=== PATIENT | male | born 2000 | race African-American/Black ===

== ENCOUNTER 2025-06-08 21:59 | Emergency (ER) | payer OTHER ==
[~2025-06-08] VITALS: Ht 185.4 cm; Wt 92.3 kg
[2025-06-08 22:41] LABS: BASO # 0.0 10^3/uL (0.0-0.2); BASO % 0.3 % (0.0-1.0); EOS # 0.2 10^3/uL (0.0-0.5); EOS % 1.7 % (0.0-3.0); LYMPH # 2.1 10^3/uL (1.5-5.0); LYMPH % 23.7 % (24.0-44.0); MONO # 0.8 10^3/uL (0.0-0.8); MONO % 8.5 % (2.0-8.0); NEUTROPHILS # 5.9 10^3/uL (1.5-8.5); NEUTROPHILS % 65.5 % (36.0-66.0); PLATELET COUNT, AUTOMATED 127 10^3/uL (150-450)
[2025-06-08 23:26] LABS: CALCIUM LEVEL 8.5 MG/DL (8.5-10.1); CARBON DIOXIDE LEVEL 28.0 MMOL/L (20-31); CHLORIDE LEVEL 103.0 MMOL/L (98-107); CREATININE FOR GFR 1.22 MG/DL (0.70-1.30); GLOMERULAR FILTRATION RATE 85.4 (>60); MAGNESIUM LEVEL 2.0 MG/DL (1.8-2.4); POTASSIUM SERUM 3.6 MMOL/L (3.5-5.1); SODIUM LEVEL 144.0 MMOL/L (136-145)
[2025-06-09] MEDS: NS (Normal Saline) 0.9% 1,000 ML IV ONE (00:45)
[2025-06-09] MEDS ORDERED: ISOVUE-370 76% 100 ML VIAL As Ordered ONE (01:10)
[2025-06-09] MEDS ORDERED: HEPARIN DRIP 25,000 UNITS in IV 1 EA IV SCH (03:20)
[2025-06-09] MEDS ORDERED: HEPARIN SOD 5000 UNITS/ML 1 ML VIAL/SYRINGE IV ONE (03:20)
[2025-06-09] MEDS: HEPARIN SOD 5000 UNITS/ML 1 ML VIAL/SYRINGE IV ONE (05:16)
[2025-06-09] MEDS: HEPARIN DRIP 25,000 UNITS in IV 1 EA IV SCH (05:17)
[2025-06-09 08:41] VITALS: BP 141/81; TEMP 98.2; O2SAT 98
== END 2025-06-09 08:44 | disposition short-term general hospital (02) ==
LOC: M ED 21:59
DX: I26.99 Other pulmonary embolism without acute cor pulmonale (principal); I45.10 Unspecified right bundle-branch block
CPT/HCPCS: 70450; 71045; 71275; 72125; 80048; 83735; 84443; 84484; 85025; 85730; 87486; 87581; 87633; 87798; 93005; 93041; 94760; 96361; 96365; 96366; 96375; 99285; Q9967

== ENCOUNTER 2025-10-06 19:43 | Inpatient (IN) | payer OTHER ==
[~2025-10-06] VITALS: Ht 185.4 cm; Wt 107.4 kg
[2025-10-06 20:55] LABS: BASO # 0.0 10^3/uL (0.0-0.2); BASO % 0.3 % (0.0-1.0); EOS # 0.1 10^3/uL (0.0-0.5); EOS % 1.1 % (0.0-3.0); LYMPH # 1.6 10^3/uL (1.5-5.0); LYMPH % 15.9 % (24.0-44.0); MONO # 0.8 10^3/uL (0.0-0.8); MONO % 8.0 % (2.0-8.0); NEUTROPHILS # 7.4 10^3/uL (1.5-8.5); NEUTROPHILS % 74.4 % (36.0-66.0); PLATELET COUNT, AUTOMATED 113 10^3/uL (150-450)
[2025-10-06 21:15] LABS: CK-MB VALUE MASS 1.7 NG/ML (<3.6)
[2025-10-06 21:17] LABS: ALT/SGPT 107 U/L (7.0-40); AST/SGOT 67 U/L (<34); CALCIUM LEVEL 9.0 MG/DL (8.5-10.1); CARBON DIOXIDE LEVEL 28 MMOL/L (20-31); CHLORIDE LEVEL 104 MMOL/L (98-107); CPK CREATINE PHOSPHOKINASE 227 U/L (46-171); CREATININE FOR GFR 0.93 MG/DL (0.70-1.30); GLOMERULAR FILTRATION RATE > 90.0 (>60); MAGNESIUM LEVEL 1.8 MG/DL (1.8-2.4); MB/CK RELATIVE INDEX 0.74 (< OR =4); POTASSIUM SERUM 4.2 MMOL/L (3.5-5.1); SODIUM LEVEL 142 MMOL/L (136-145)
[2025-10-06 21:19] LABS: FREE T4 1.25 NG/DL (0.89-1.76)
[2025-10-06 21:21] LABS: INR 1.02
[2025-10-06] MEDS ORDERED: ISOVUE-370 76% 100 ML VIAL As Ordered ONE (21:35)
[2025-10-06 22:17] LABS: CK-MB VALUE MASS 1.9 NG/ML (<3.6)
[2025-10-06 22:19] LABS: CPK CREATINE PHOSPHOKINASE 274.0 U/L (46-171); MB/CK RELATIVE INDEX 0.69 (< OR =4)
[2025-10-07] VITALS (27 sets, daily range): BP systolic 127–143; BP diastolic 67–82; TEMP 97–98.5; O2SAT 91–100
[2025-10-07] MEDS ORDERED: MOM 30 ML SUSPENSION UDC PO PRN (00:10)
[2025-10-07] MEDS ORDERED: ACETAMINOPHEN 325 MG TAB PO PRN (00:10)
[2025-10-07] MEDS ORDERED: ELIQ5TAB PO (00:51)
[2025-10-07] MEDS: ENOXAPARIN 100 MG/1 ML SYRINGE (J1650 PER 10MG) SC ONE (00:52)
[2025-10-07] MEDS ORDERED: HOME MED LIST COMPLETE! XX SCH (00:55)
[2025-10-07 05:36] LABS: BASO # 0.0 10^3/uL (0.0-0.2); BASO % 0.3 % (0.0-1.0); EOS # 0.1 10^3/uL (0.0-0.5); EOS % 1.1 % (0.0-3.0); LYMPH # 2.3 10^3/uL (1.5-5.0); LYMPH % 25.9 % (24.0-44.0); MONO # 0.8 10^3/uL (0.0-0.8); MONO % 8.6 % (2.0-8.0); NEUTROPHILS # 5.6 10^3/uL (1.5-8.5); NEUTROPHILS % 63.8 % (36.0-66.0); PLATELET COUNT, AUTOMATED 113 10^3/uL (150-450)
[2025-10-07 05:53] LABS: INR 1.06
[2025-10-07 06:01] LABS: ALT/SGPT 85 U/L (7.0-40); AST/SGOT 44 U/L (<34); CALCIUM LEVEL 8.7 MG/DL (8.5-10.1); CARBON DIOXIDE LEVEL 25 MMOL/L (20-31); CHLORIDE LEVEL 106 MMOL/L (98-107); CREATININE FOR GFR 0.85 MG/DL (0.70-1.30); GLOMERULAR FILTRATION RATE > 90.0 (>60); POTASSIUM SERUM 4.0 MMOL/L (3.5-5.1); SODIUM LEVEL 142 MMOL/L (136-145)
[2025-10-07] MEDS: ENOXAPARIN 100 MG/1 ML SYRINGE (J1650 PER 10MG) SC SCH (11:41)
[2025-10-08] VITALS (26 sets, daily range): BP systolic 137–150; BP diastolic 65–76; TEMP 97–98.6; O2SAT 92–99
[2025-10-08 06:15] LABS: BASO # 0.0 10^3/uL (0.0-0.2); BASO % 0.4 % (0.0-1.0); EOS # 0.2 10^3/uL (0.0-0.5); EOS % 2.1 % (0.0-3.0); LYMPH # 2.2 10^3/uL (1.5-5.0); LYMPH % 30.9 % (24.0-44.0); MONO # 0.8 10^3/uL (0.0-0.8); MONO % 11.5 % (2.0-8.0); NEUTROPHILS # 4.0 10^3/uL (1.5-8.5); NEUTROPHILS % 54.8 % (36.0-66.0); PLATELET COUNT, AUTOMATED 121 10^3/uL (150-450)
[2025-10-08 06:38] LABS: CALCIUM LEVEL 8.3 MG/DL (8.5-10.1); CARBON DIOXIDE LEVEL 25 MMOL/L (20-31); CHLORIDE LEVEL 108 MMOL/L (98-107); CREATININE FOR GFR 0.97 MG/DL (0.70-1.30); GLOMERULAR FILTRATION RATE > 90.0 (>60); POTASSIUM SERUM 4.1 MMOL/L (3.5-5.1); SODIUM LEVEL 142 MMOL/L (136-145)
[2025-10-08 12:40] LABS: INR 1.03
[2025-10-08] MEDS ORDERED: WARFARIN SOD 5MG TAB PO SCH (22:00)
[2025-10-09] VITALS (31 sets, daily range): BP systolic 109–144; BP diastolic 56–80; TEMP 97.9–98.7; O2SAT 92–99
[2025-10-09 07:02] LABS: BASO # 0.0 10^3/uL (0.0-0.2); BASO % 0.5 % (0.0-1.0); EOS # 0.2 10^3/uL (0.0-0.5); EOS % 2.2 % (0.0-3.0); LYMPH # 3.0 10^3/uL (1.5-5.0); LYMPH % 38.5 % (24.0-44.0); MONO # 1.0 10^3/uL (0.0-0.8); MONO % 12.7 % (2.0-8.0); NEUTROPHILS # 3.5 10^3/uL (1.5-8.5); NEUTROPHILS % 45.8 % (36.0-66.0); PLATELET COUNT, AUTOMATED 116 10^3/uL (150-450)
[2025-10-09 07:21] LABS: INR 1.06
[2025-10-09 07:22] LABS: CALCIUM LEVEL 8.4 MG/DL (8.5-10.1); CARBON DIOXIDE LEVEL 27 MMOL/L (20-31); CHLORIDE LEVEL 105 MMOL/L (98-107); CREATININE FOR GFR 1.11 MG/DL (0.70-1.30); GLOMERULAR FILTRATION RATE > 90.0 (>60); POTASSIUM SERUM 4.2 MMOL/L (3.5-5.1); SODIUM LEVEL 143 MMOL/L (136-145)
[2025-10-09] MEDS: NS (Normal Saline) 0.9% 1,000 ML IV SCH (10:20)
[2025-10-09] MEDS: MIDAZOLAM INJ 2 MG/2 ML VIAL IV PRN (10:55)
[2025-10-09] MEDS: HEPARIN 1,000 UNITS/ML 10 ML VIAL (FOR RADIOLOGY & DIALYSIS ONLY) IV PRN (11:20)
[2025-10-09] MEDS: ISOVUE-300 61% 100 ML VIAL IV SCH (11:59)
[2025-10-09] MEDS: LIDOCAINE 1% MDV 20 ML VIAL SC SCH (12:00)
[2025-10-09] MEDS ORDERED: NS (Normal Saline) 0.9% 1,000 ML IV SCH (12:05)
[2025-10-09 17:28] LABS: CARDIOLIPIN IGA ANTIBODY < 2.0 APL-U/mL (<20.0); CARDIOLIPIN IGG ANTIBODY < 2.0 GPL-U/mL (<20.0); CARDIOLIPIN IGM ANTIBODY < 2.0 MPL-U/mL (<20.0)
[2025-10-10] VITALS (19 sets, daily range): BP systolic 112–133; BP diastolic 47–76; TEMP 97.3–97.8; O2SAT 95–99
[2025-10-10 02:44] LABS: PROTEIN C FUNCTIONAL ACTIVITY 69 % normal (70-180); PROTEIN S FUNCTIONAL ACTIVITY 60 % normal (70-150)
[2025-10-10 05:16] LABS: BASO # 0.0 10^3/uL (0.0-0.2); BASO % 0.3 % (0.0-1.0); EOS # 0.2 10^3/uL (0.0-0.5); EOS % 3.5 % (0.0-3.0); LYMPH # 2.5 10^3/uL (1.5-5.0); LYMPH % 40.0 % (24.0-44.0); MONO # 0.6 10^3/uL (0.0-0.8); MONO % 9.3 % (2.0-8.0); NEUTROPHILS # 2.9 10^3/uL (1.5-8.5); NEUTROPHILS % 46.7 % (36.0-66.0); PLATELET COUNT, AUTOMATED 127 10^3/uL (150-450)
[2025-10-10 05:43] LABS: INR 1.02
[2025-10-10 05:47] LABS: CALCIUM LEVEL 8.3 MG/DL (8.5-10.1); CARBON DIOXIDE LEVEL 26 MMOL/L (20-31); CHLORIDE LEVEL 105 MMOL/L (98-107); CREATININE FOR GFR 0.93 MG/DL (0.70-1.30); GLOMERULAR FILTRATION RATE > 90.0 (>60); POTASSIUM SERUM 4.1 MMOL/L (3.5-5.1); SODIUM LEVEL 141 MMOL/L (136-145)
[2025-10-10] MEDS ORDERED: WARFARIN SOD 5MG TAB PO SCH (17:00)
[2025-10-11 10:15] LABS: DRVV SCREEN 40.2 SECONDS
[2025-10-11 10:58] LABS: PTT LUPUS TYPE ANTICOAG SCREEN 0.99 (0-1.20)
[2025-10-11 14:08] LABS: FACTOR II PROTHROMBIN GENE AN NEGATIVE
[2025-10-11 19:42] LABS: FACTOR V LEIDEN FOR MEDINET NEGATIVE
[2025-10-12 00:47] LABS: ANTI THROMBIN 3 ANTIGEN IMMUNO 86 % normal (80-120); ANTI THROMBIN 3 FUNCT ACTIVITY 107 % normal (80-135)
[2025-10-12 16:20] LABS: PHOSPHOLIPIDS LEVEL 169 mg/dL (151-264)
== END 2025-10-10 17:42 | disposition home or self-care (01) | DRG 164 ==
LOC: M ED 19:43 → M ED INP 23:29 → M PCU 10-07 01:01
PROVIDERS: ADMIT Internal Medicine Nephrology; ATTEND Student in an Organized Health Care Education/Training Program
PROC: B246ZZZ Ultrasonography of Right and Left Heart (ICD-10-PCS; 2025-10-07)
PROC: 02CQ3ZZ Extirpation of Matter from Right Pulmonary Artery, Percutaneous Approach (ICD-10-PCS; 2025-10-09)
PROC: 02CR3ZZ Extirpation of Matter from Left Pulmonary Artery, Percutaneous Approach (ICD-10-PCS; principal; 2025-10-09 11:30)
DX: I26.99 Other pulmonary embolism without acute cor pulmonale (principal); I82.432 Acute embolism and thrombosis of left popliteal vein; R55 Syncope and collapse; D69.6 Thrombocytopenia, unspecified; I27.20 Pulmonary hypertension, unspecified; R74.01 Elevation of levels of liver transaminase levels; Z79.01 Long term (current) use of anticoagulants